=== PATIENT | female | born 1945 | race Caucasian/White ===

== ENCOUNTER 2016-12-11 07:15 | Emergency (ER) | payer OTHER, MEDICARE ==
[~2016-12-11] VITALS: Ht 167.6 cm; Wt 96.0 kg
[~2016-12-11 07:15] MED LIST: ALL DAY ALLERGY10 M2 PO; ASPIRIN81 M2 PO; ATORVASTATIN CA20 MG PO; CENTRUM SILVER1 EAC4 PO; CIPRO500 MG PO; CLEOCIN300 MG PO; LEVAQUIN750 MG PO; LEVEMIR100 UNIT/2 SC; LISINOPRIL40 MG PO; METOPROLOL SUCC50 MG PO; METRONIDAZOLE500 MG PO; NOVOLOG 10100 UNITS/; NOVOLOG 10100 UNITS/ SC; PANTOPRAZOLE SO40 MG PO; ULTRAM50 MG PO
[2016-12-11 08:02] LABS: EOSINOPHIL (%) 0.2 % (0-5); HEMATOCRIT 37.8 % (36.0-46.0); IMMATURE GRANULOCYTE (%) 0.4 % (0.0-0.7); INSTRUMENT ABS NEUTROPHIL CT 8.3 K/uL; LYMPHOCYTE COUNT 0.8 K/uL (1.0-2.8); MCH 29.5 PG (29.0-34.0); MCHC 32.3 G/DL (30.0-36.0); MCV 91.3 FL (83-99); MEAN PLAT.VOLUME 9.2 uM^3 (9.5-12.4); MONOCYTE (%) 6.4 % (3-12); MONOCYTE COUNT 0.6 K/uL (0-0.8); NEUTROPHIL COUNT 8.3 K/uL (1.8-6.4); PLATELET COUNT 264 K/uL (156-360); RBC DIS.WIDTH-CV 13.1 % (11.8-14.6); RBC DIS.WIDTH-SD 43.7 % (39-53); RED BLOOD COUNT 4.14 M/uL (3.80-5.20); WHITE BLOOD COUNT 9.7 K/uL (4.1-10.2)
[2016-12-11 08:09] LABS: PROTHROMBIN TIME 10.4 SEC (10.2-12.9)
[2016-12-11 08:11] LABS: D-DIMER ELISA < 150.00 ng/mLDDU (<230); PTT 29.9 SEC (25-37)
[2016-12-11 08:13] LABS: CHLORIDE 106 mEq/L (99-109); SODIUM 140 mEq/L (136-147)
[2016-12-11 08:14] LABS: GLUCOSE 202 mg/dL (70-99)
[2016-12-11 08:16] LABS: ANION GAP 5 MEQ/L (2-14)
[2016-12-11 08:18] LABS: GFR ESTIMATE (CALCULATED) > 59 mL/min/
[2016-12-11 08:19] LABS: UREA NITROGEN (BUN) 10 mg/dL (9-23)
[2016-12-11 08:24] LABS: TROP-I INTERPRETATION NEGATIVE; TROPONIN-I < 0.01 ng/mL (0.0-0.30)
[2016-12-11 13:01] LABS: POINT-OF-CARE METER ID UU13113747
[2016-12-11 15:03] VITALS: BP 130/81
== END 2016-12-11 15:06 | disposition short-term general hospital (02) ==
LOC: EME 07:15
PROVIDERS: Emergency Medicine
DX: I71.01 Dissection of thoracic aorta (principal); R07.9 Chest pain, unspecified; E11.9 Type 2 diabetes mellitus without complications; Z79.4 Long term (current) use of insulin; I10 Essential (primary) hypertension; Z79.82 Long term (current) use of aspirin; J45.909 Unspecified asthma, uncomplicated; Z88.8 Allergy status to other drugs, medicaments and biological substances
CPT/HCPCS: 71010; 71275; 80048; 82948; 83880; 84484; 85025; 85379; 85610; 85730; 93005; 99281; 99285; J2270; J2405